=== PATIENT | male | born 1985 | race Caucasian/White ===

== ENCOUNTER 2016-09-13 20:15 | Emergency (ER) | payer OTHER ==
[2016-09-13 21:14] VITALS: BP 136/79
--- NOTE | 2016-09-13 21:24 | ER Document Report ---
ED Medical Screen (RME) - General Stated Complaint: LEFT LEG SWELLING Time seen by provider: 21:18 Mode of Arrival: Ambulatory Information source: Patient Notes: 31-year-old nondiabetic obese male complaining of pain in the left lower leg from the knee down that started 2 months ago. Hurts worse since noon while he was at work. The leg swells every day, the skin graft area is getting raised and warm. .He had a deep infection that required debridement to the bone and a hospital stay of 3 months while he was 11 years old , unsure if he had blood clots at the time. I have greeted and performed a rapid initial assessment of this patient. A comprehensive ED assessment, evaluation of the patient, analysis of test results , and completion of the medical decision making process will be conducted by additional ED providers. TRAVEL OUTSIDE OF THE [place] IN LAST 30 DAYS: No - Related Data Allergies/Adverse Reactions: No Known Allergies Allergy (Verified 05/18/16 11:11) Past Medical History Past Surgical History: Reports: Hx Orthopedic Surgery, Hx Tonsillectomy - Immunizations Immunizations up to date: Yes Hx Diphtheria, Pertussis, Tetanus Vaccination: No Physical Exam - Vital signs Vitals: Temp Pulse Resp BP Pulse Ox 98.0 F 82 16 136/79 H 95 09/13/16 21:12 09/13/16 21:12 09/13/16 21:12 09/13/16 21:12 09/13/16 21:12 Course - Vital Signs Vital signs: Temp Pulse Resp BP Pulse Ox 98.0 F 82 16 136/79 H 95 09/13/16 21:12 09/13/16 21:12 09/13/16 21:12 09/13/16 21:12 09/13/16 21:12
[2016-09-13 22:56] LABS: ABSOLUTE BASOPHILS # (AUTO) 0.1 10^3/uL (0.0-0.2); ABSOLUTE LYMPHOCYTES (AUTO) 3.3 10^3/uL (0.5-4.7); ABSOLUTE MONOCYTES (AUTO) 1.2 10^3/uL (0.1-1.4); ABSOLUTE NEUT (AUTO) 9.9 10^3/uL (1.7-8.2); BASOPHILS % (AUTO) 0.5 % (0-2); EOSINOPHILS % (AUTO) 6.5 % (0-6); HEMATOCRIT 46.9 % (37.9-51.0); HEMOGLOBIN 15.4 g/dL (13.5-17.0); HGB HCT DIFFERENCE -0.7; LYMPHOCYTES % (AUTO) 21.3 % (13-45); MEAN CORPUSCULAR HEMOGLOBIN 27.2 pg (27.0-33.4); MEAN CORPUSCULAR HGB CONC 32.8 g/dL (32.0-36.0); MEAN CORPUSCULAR VOLUME 83 fl (80-97); MONOCYTES % (AUTO) 7.5 % (3-13); RED BLOOD COUNT 5.65 10^6/uL (4.35-5.55); RED CELL DISTRIBUTION WIDTH 14.5 % (11.5-14.0); SEGMENTED NEUTROPHILS % (AUTO) 64.2 % (42-78); WHITE BLOOD COUNT 15.5 10^3/uL (4.0-10.5)
[2016-09-13 23:06] LABS: PROTHROMBIN TIME 12.3 SEC (11.4-15.4)
[2016-09-13 23:07] LABS: PARTIAL THROMBOPLASTIN TIME 27.7 SEC (23.5-35.8)
[2016-09-13 23:14] LABS: ALANINE AMINOTRANSFERASE 45 U/L (21-72); ALBUMIN 4.3 g/dL (3.5-5.0); ALKALINE PHOSPHATASE 100 U/L (38-126); ANION GAP 12 (5-19); ASPARTATE AMINO TRANSFERASE 26 U/L (17-59); BILIRUBIN,TOTAL 0.5 mg/dL (0.2-1.3); BLOOD UREA NITROGEN 14 mg/dL (7-20); CALCIUM 9.4 mg/dL (8.4-10.2); CARBON DIOXIDE 26 mmol/L (22-30); CHLORIDE 106 mmol/L (98-107); CREATININE RESULT 0.95 mg/dL (0.52-1.25); GLUCOSE 95 mg/dL (75-110); POTASSIUM 4.3 mmol/L (3.6-5.0); SODIUM 143.6 mmol/L (137-145); TOTAL PROTEIN 7.3 g/dL (6.3-8.2)
[2016-09-14] MEDS ORDERED: OXYCODONE-ACETAMINOPHEN 5-325 MG TABLET PO ONE (00:44)
--- NOTE | 2016-09-14 00:44 | ER Document Report ---
ED Extremity Problem, Lower - General Mode of Arrival: Ambulatory Information source: Patient TRAVEL OUTSIDE OF THE [place] IN LAST 30 DAYS: No - HPI Patient complains to provider of: Pain, Swelling Location: Leg - left Occurred: Other - x2 months Quality of pain: Achy, Pressure Recent injury: No <STEVEN GRANADOS - Last Filed: 09/14/16 03:36> <HALLIE RECINOS - Last Filed: 09/14/16 06:22> - General Chief Complaint: Leg Pain Stated Complaint: LEFT LEG SWELLING Notes: Patient is a 31-year-old male that presents to the emergency department today with complaints of left leg swelling for the last 2 months. Patient states nothing new happened today, it just "hurt really bad" so he decided to have it evaluated. Patient states at age 11, he had a cellulitic infection to his left leg and needed to have a skin graft performed. Patient denies any history of blood clots or clotting disorders. (STEVEN GRANADOS) - Related Data Allergies/Adverse Reactions: No Known Allergies Allergy (Verified 05/18/16 11:11) Past Medical History - General Information source: Patient, [facility] Records - Social History Smoking Status: Current Every Day Smoker Cigarette use (# per day): Yes Frequency of alcohol use: None Drug Abuse: None Lives with: Family Family History: Reviewed & Not Pertinent Patient has suicidal ideation: No Patient has homicidal ideation: No Skin Medical History: Reports Hx Cellulitis - at 11 years old to left leg with resulting skin graft Past Surgical History: Reports: Hx Orthopedic Surgery, Hx Tonsillectomy, Other - Skin graft to left leg at age 11 - Immunizations Immunizations up to date: Yes Hx Diphtheria, Pertussis, Tetanus Vaccination: No <STEVEN GRANADOS - Last Filed: 09/14/16 03:36> Review of Systems - Review of Systems Constitutional: No symptoms reported EENT: No symptoms reported Cardiovascular: No symptoms reported Respiratory: No symptoms reported Gastrointestinal: No symptoms reported Genitourinary: No symptoms reported Male Genitourinary: No symptoms reported Musculoskeletal: See HPI, Other - left leg swelling with pain Skin: No symptoms reported Hematologic/Lymphatic: No symptoms reported Neurological/Psychological: No symptoms reported -: Yes All other systems reviewed and negative <STEVEN GRANADOS - Last Filed: 09/14/16 03:36> Physical Exam <STEVEN GRANADOS - Last Filed: 09/14/16 03:36> <HALLIE RECINOS - Last Filed: 09/14/16 06:22> - Vital signs Vitals: Temp Pulse Resp BP Pulse Ox 98.0 F 82 16 136/79 H 95 09/13/16 21:12 09/13/16 21:12 09/13/16 21:12 09/13/16 21:12 09/13/16 21:12 (STEVEN GRANADOS) (HALLIE RECINOS) - Notes Notes: Physical Exam: General: Alert, appears well. HEENT: Normocephalic. Atraumatic. PERRL. Extraocular movements intact. Oropharynx clear. Neck: Supple. Respiratory: No respiratory distress. Abdominal: Obese. No distension. Extremities: Swollen left leg, diffuse tenderness with palpation to left leg. No erythema, warmth, or ecchymosis. Scar to left leg consistent with past history. Neurological: Normal cognition. AAOx4. Normal speech. Psychological: Normal affect. Normal Mood. Skin: Warm. Dry. Normal color. (STEVEN GRANADOS) Course - Laboratory Result Diagrams: 09/13/16 22:18 09/13/16 22:18 <STEVEN GRANADOS - Last Filed: 09/14/16 03:36> - Laboratory Result Diagrams: 09/13/16 22:18 09/13/16 22:18 - Diagnostic Test Radiology reviewed: Reports reviewed <HALLIE RECINOS - Last Filed: 09/14/16 06:22> - Re-evaluation Re-evalutation: 09/14/16 Patient with old injury and dad venous insufficiency. No DVT. No cellulitis. Patient will be given pain medication and compression stockings. Stable for discharge. Return if any worsening or concerning symptoms. (HALLIE RECINOS) - Vital Signs Vital signs: Temp Pulse Resp BP Pulse Ox 98.0 F 82 16 136/79 H 95 09/13/16 21:12 09/13/16 21:12 09/13/16 21:12 09/13/16 21:12 09/13/16 21:12 (STEVEN GRANADOS) (HALLIE RECINOS) - Laboratory Laboratory results interpreted by me: 09/13/16 22:18 WBC 15.5 H RBC 5.65 H RDW 14.5 H Eosinophils % 6.5 H Absolute Neutrophils 9.9 H Absolute Eosinophils 1.0 H (STEVEN GRANADOS) (HALLIE RECINOS) Discharge <STEVEN GRANADOS - Last Filed: 09/14/16 03:36> <HALLIE RECINOS - Last Filed: 09/14/16 06:22> - Discharge Clinical Impression: Venous (peripheral) insufficiency, Leg pain, left Condition: Stable Disposition: HOME, SELF-CARE Instructions: Varicose Veins ([facility]) Prescriptions: Comp.stocking,Knee,Long,X-Lrg [Activa Men's Dress Sock] 1 each MC DAILY #1 each Oxycodone HCl/Acetaminophen [Percocet 5-325 mg Tablet] 1 - 2 tab PO Q4H PRN #15 tablet PRN Reason: Referrals: CARLIE MCKEON MD [ACTIVE STAFF] - Follow up as needed Scribe Attestation: 09/14/16 06:22 I personally performed the services described in the documentation, reviewed and edited the documentation which was dictated to the scribe in my presence, and it accurately records my words and actions. (HALLIE RECINOS) Scribe Documentation - Scribe Written by Scribe:: Jose Sloan, [id number] 09/14/2016 acting as scribe for :: Anam <STEVEN GRANADOS - Last Filed: 09/14/16 03:36>
== END 2016-09-14 01:00 | disposition home or self-care (01) ==
LOC: ER 20:15
DX: I87.2 Venous insufficiency (chronic) (peripheral) (principal); M79.605 Pain in left leg; F17.210 Nicotine dependence, cigarettes, uncomplicated; Z98.890 Other specified postprocedural states; Z87.2 Personal history of diseases of the skin and subcutaneous tissue
CPT/HCPCS: 36415; 80053; 85025; 85610; 85730; 93971; 99283

== ENCOUNTER 2016-12-30 02:22 | Emergency (ER) | payer MEDICAID, OTHER ==
[2016-12-30 04:22] LABS: APPEARANCE,URINE CLEAR; BILIRUBIN,URINE NEGATIVE (NEGATIVE); GLUCOSE, URINE NEGATIVE (NEGATIVE); KETONES,URINE NEGATIVE (NEGATIVE); LEUKOCYTE ESTERASE,URINE NEGATIVE (NEGATIVE); NITRITE,URINE NEGATIVE (NEGATIVE); PROTEIN,URINE NEGATIVE (NEGATIVE); URINE SPECIFIC GRAVITY 1.024; UROBILINOGEN,URINE NEGATIVE mg/dL (<2.0)
--- NOTE | 2016-12-30 05:08 | ER Document Report ---
ED General - General Chief Complaint: Urinary Frequency Stated Complaint: LOWER BACK PAIN Time Seen by Provider: 12/30/16 03:06 TRAVEL OUTSIDE OF THE [place] IN LAST 30 DAYS: No - HPI Patient complains to provider of: Urinary frequency evaluation of cyst Notes: Patient coming in for evaluation of urinary frequency and possible cyst formation. Patient states has a history of cyst formation and removal on the lower spine in the back years ago. Patient states this has reformed however patient thinks he may be developing a cyst in the front along the waistline. Patient denies any fever chills nausea vomiting denies any recent trauma. Patient states he is active with his . No concerns for transmitted disease. No penile drainage or drip. - Related Data Allergies/Adverse Reactions: No Known Allergies Allergy (Verified 05/18/16 11:11) Past Medical History - Social History Smoking Status: Never Smoker Frequency of alcohol use: None Drug Abuse: None Family History: Reviewed & Not Pertinent Patient has suicidal ideation: No Patient has homicidal ideation: No Renal/ Medical History: Denies: Hx Peritoneal Dialysis Skin Medical History: Reports Hx Cellulitis - at 11 years old to left leg with resulting skin graft Past Surgical History: Reports: Hx Orthopedic Surgery, Hx Tonsillectomy, Other - Skin graft to left leg at age 11 - Immunizations Immunizations up to date: Yes Hx Diphtheria, Pertussis, Tetanus Vaccination: No Review of Systems - Review of Systems Constitutional: No symptoms reported EENT: No symptoms reported Cardiovascular: No symptoms reported Respiratory: No symptoms reported Gastrointestinal: No symptoms reported Genitourinary: Dysuria Male Genitourinary: No symptoms reported Musculoskeletal: No symptoms reported Skin: Other - cyst Hematologic/Lymphatic: No symptoms reported Neurological/Psychological: No symptoms reported -: Yes All other systems reviewed and negative Physical Exam - Vital signs Vitals: Temp Pulse Resp BP Pulse Ox 98.3 F 85 16 148/74 H 99 12/30/16 02:37 12/30/16 02:37 12/30/16 02:37 12/30/16 02:37 12/30/16 02:37 Interpretation: Normal - General General appearance: Appears well, Alert - HEENT Head: Normocephalic, Atraumatic Eyes: Normal Pupils: PERRL - Respiratory Respiratory status: No respiratory distress Chest status: Nontender Breath sounds: Normal Chest palpation: Normal - Cardiovascular Rhythm: Regular Heart sounds: Normal auscultation Murmur: No - Abdominal Inspection: Normal Distension: No distension Bowel sounds: Normal Tenderness: Nontender Organomegaly: No organomegaly - Genitourinary Notes: Patient of the right frontal inguinal region does reveal possible early cyst formation no signs of abscess no signs of cellulitis - Back Back: Normal, Nontender Notes: Above the right gluteal cleft there is a cyst formation patient states this is chronic for him no signs of erythema redness no fluctuance no signs of abscess formation - Extremities General upper extremity: Normal inspection, Nontender, Normal color, Normal ROM , Normal temperature General lower extremity: Normal inspection, Nontender, Normal color, Normal ROM , Normal temperature, Normal weight bearing. No: Ronal's sign - Neurological Neuro grossly intact: Yes Cognition: Normal Orientation: AAOx4 [place] Coma Scale Eye Opening: Spontaneous [place] Coma Scale Verbal: Oriented [place] Coma Scale Motor: Obeys Commands [place] Coma Scale Total: 15 Speech: Normal Motor strength normal: LUE, RUE, LLE, RLE Sensory: Normal - Psychological Associated symptoms: Normal affect, Normal mood - Skin Skin Temperature: Warm Skin Moisture: Dry Skin Color: Normal Course - Re-evaluation Re-evalutation: 12/30/16 05:07 Patient is coming in for evaluation of cyst and urinary frequency. Urinalysis is negative. Patient is not concerned about any STDs. That testing is still pending. No treatment will be given to the patient. Physical examination does reveal possible formation of dermoid cyst in the waist region. Patient was given general surgery follow-up and dermatology for further evaluation 12/30/16 05:11 : The patient presents with low back pain without signs of spinal cord compression, cauda equina syndrome, infection, aneurysm, or other serious etiology. The patient is neurologically intact. Given the extremely low risk of these diagnoses further testing and evaluation for these possibilities does not appear to be indicated at this time. The patient has been instructed to return if the symptoms worsen or change in any way. .. - Vital Signs Vital signs: Temp Pulse Resp BP Pulse Ox 98.3 F 85 16 148/74 H 99 12/30/16 02:37 12/30/16 02:37 12/30/16 02:37 12/30/16 02:37 12/30/16 02:37 Discharge - Discharge Clinical Impression: Frequency of urination, Skin cyst Back pain Qualifiers: Back pain location: low back pain Chronicity: unspecified Back pain laterality : unspecified Sciatica presence: unspecified whether sciatica present Qualified Code(s): M54.5 - Low back pain Condition: Good Disposition: HOME, SELF-CARE Instructions: Oral Narcotic Medication ([facility]), Low Back Pain ([facility]) Additional Instructions: At this time. Physical examination is consistent with more likely development of a dermoid cyst in the front of her waistline. Last time he will need to be removed by a loss prevention operations manager or a general surgeon. Continue to monitorfor redness. There is no signs of any urinary tract infection in urine today. Please follow-up with your care physician. For your lower back pain he may take a pain medication as prescribed also may take Tylenol or Motrin for your pain. Please follow-up with the primary care physician for further evaluation Prescriptions: Ibuprofen [Motrin 600 Mg Tablet] 600 mg PO TID #30 tablet Tramadol HCl [Ultram 50 mg Tablet] 50 mg PO ASDIR PRN #20 tablet PRN Reason: Forms: Return to Work Referrals: AIDAN MONTERO DO [ACTIVE STAFF] - Follow up as needed SURGICALIST,SURGICAL MD [ACTIVE STAFF] - Follow up as needed
[2016-12-30 05:38] VITALS: BP 134/76
[2016-12-30 05:48] LABS: CHLAM PCR NOT DETECTED (NOT DETECT)
== END 2016-12-30 05:38 | disposition home or self-care (01) ==
LOC: ER 02:22
DX: R35.0 Frequency of micturition (principal); L72.9 Follicular cyst of the skin and subcutaneous tissue, unspecified; M54.5 Low back pain
CPT/HCPCS: 81001; 87491; 87591; 99283

== ENCOUNTER 2017-08-04 15:34 | Emergency (ER) | payer SELFPAY ==
--- NOTE | 2017-08-04 16:05 | ER Document Report ---
HPI - HPI Patient complains to provider of: Right index finger nailbed infection Onset: Other - Several days Onset/Duration: Gradual Quality of pain: Throbbing Pain Level: 4 Context: 32-year-old obese nondiabetic male with swelling and infection to the nailbed of his right index finger for several days. No fever. Temperature is 99.4 here Associated Symptoms: None Exacerbated by: Movement Relieved by: Denies Similar symptoms previously: No Recently seen / treated by doctor: No - ROS ROS below otherwise negative: Yes Systems Reviewed and Negative: Yes All other systems reviewed and negative - REPRODUCTIVE Reproductive: DENIES: : Past Medical History - General Information source: Patient - Social History Smoking Status: Current Every Day Smoker Frequency of alcohol use: None Drug Abuse: None Lives with: Family Family History: Reviewed & Not Pertinent Renal/ Medical History: Denies: Hx Peritoneal Dialysis Skin Medical History: Reports Hx Cellulitis - at 11 years old to left leg with resulting skin graft Past Surgical History: Reports: Hx Orthopedic Surgery, Hx Tonsillectomy, Other - Skin graft to left leg at age 11 - Immunizations Immunizations up to date: Yes Hx Diphtheria, Pertussis, Tetanus Vaccination: No Vertical Provider Document - CONSTITUTIONAL Agree With Documented VS: Yes Exam Limitations: No Limitations - INFECTION CONTROL TRAVEL OUTSIDE OF THE [place] IN LAST 30 DAYS: No - HEENT HEENT: Normocephalic - NECK Neck: Supple - RESPIRATORY O2 Sat by Pulse Oximetry: 96 - MUSCULOSKELETAL/EXTREMETIES Musculoskeletal/Extremeties: MAEW, FROM, Tender - inflamed, paronythia without felon base of right thumb eponycium - NEURO Level of Consciousness: Awake, Alert, Appropriate Motor/Sensory: No Motor Deficit, No Sensory Deficit Course - Vital Signs Vital signs: Temp Pulse Resp BP Pulse Ox 99.4 F 100 18 147/86 H 96 08/04/17 15:40 08/04/17 15:40 08/04/17 15:40 08/04/17 15:40 08/04/17 15:40 Procedures - Incision and Drainage Right 2nd digit Time completed: 17:14 Type: Simple Blade size: 11 I&D procedure: Betadine prep applied Incision Method: Incision made by scalpel - large pus, deroofed, dry dressing Discharge - Discharge Clinical Impression: incision paronychia right index finger Condition: Good Disposition: HOME, SELF-CARE Instructions: Elevation & Warmth ([facility]), Paronychia ([facility]) Additional Instructions: soak in warm soapy water twice a day to er any concerns Forms: Return to Work
[2017-08-04] MEDS ORDERED: IBUPROFEN 800 MG TABLET PO ONE (16:54)
[2017-08-04 17:23] VITALS: BP 129/81
== END 2017-08-04 17:19 | disposition home or self-care (01) ==
LOC: ER 15:34
DX: L03.011 Cellulitis of right finger (principal); F17.200 Nicotine dependence, unspecified, uncomplicated
CPT/HCPCS: 99283